=== PATIENT | female | born 2005 | race Caucasian/White ===

== ENCOUNTER 2024-01-03 16:58 | Emergency (ER) | payer OTHER ==
[2024-01-03 17:27] LABS: Bilirubin Negative (Negative); Blood, Urine Negative (Negative); Glucose, Urine (Dipstick) Negative (Negative); Ketone, Urine Negative (Negative); Leukocyte Negative (Negative); Nitrite Negative (Negative); Protein, Urine (Dipstick) Negative (Neg-Trace); Specific Gravity, Urine 1.015 (1.005-1.030); Urobilinogen 0.2 mg/dL (Less than 2); pH, Urine 8.5 (5.0-9.0)
[2024-01-03 17:30] LABS: Clarity Clear (Clear); Pregnancy Test - Urine (BHCG) Negative (Negative); Pregu Control Background? CLEAR/WHITE (CLR/WHITE); Pregu Control Bar Appear? YES (CONTROL BAR); Specific Gravity 1.015 (1.002-1.036)
[2024-01-03 17:32] LABS: Bacteria/HPF 1+ HPF (None Seen); CAUTI Indications for Culture Dysuria,urgency,freq; RBC/HPF None Seen HPF (0-3); WBC/HPF None Seen HPF (0-3)
[2024-01-03 17:33] LABS: Urine Culture Reflex No No
[2024-01-03 18:19] LABS: #Basophils 0.05 10x3/uL (0.0-0.2); %Basophils 0.4 % (0.0-1.0); %Eosinophils 1.4 % (0.0-10.0); %Monocytes 5.6 % (0.0-4.0); %Neutrophils 78.2 % (31.0-61.0); Hematocrit 39.9 % (36.0-47.0); Hemoglobin 13.3 g/dL (12.0-16.0); Mean Corpuscular HGB CONC 33.3 g/dL (32.0-36.0); Mean Corpuscular Hemoglobin 29.4 pg (25.0-35.0); Mean Corpuscular Volume 88.3 fL (78.0-98.0); Mean Platelet Volume 10.1 fL (7.4-10.4); Platelet Count 316 10x3/uL (130-400); RBC Distribution Width 12.2 % (11.5-14.5); Red Blood Cell (RBC) Count 4.52 mill/uL (4.00-5.20)
[2024-01-03 18:36] LABS: ALT (SGPT) 16 U/L (8-55); AST (SGOT) 17 U/L (5-30); Albumin 4.1 g/dL (3.5-5.0); Alkaline Phosphatase 91 U/L (40-100); Anion Gap 9 mmol/L (10-20); BUN (Urea Nitrogen) 11 mg/dL (8.4-21.0); Calc. Creatinine Clearance 0 mL/min (70-130); Calcium 9.2 mg/dL (7.8-10.44); Carbon Dioxide 23 mmol/L (22-29); Chloride 107 mmol/L (98-107); Estimated GFR 110; Globulin 3.4 g/dL (2.4-3.5); Glucose 86 mg/dL (70-105); Lipase 17 U/L (8-78); Potassium 4.4 mmol/L (3.5-5.1); Protein, Total 7.5 g/dL (6.0-8.3); Sodium 135 mmol/L (136-145)
[2024-01-03] MEDS ORDERED: Metoclopramide HCl 10 MG (2 mL) VIAL ONE (20:09)
[2024-01-03] MEDS ORDERED: Amoxicillin/Potassium Clav 875 MG TAB ONE (20:09)
[2024-01-03] MEDS ORDERED: Metoclopramide HCl 10 MG TAB ONE (20:14)
[2024-01-03] MEDS ORDERED: Acetaminophen 500 MG TAB ONE (20:41)
[2024-01-03] MEDS ORDERED: diphenhydrAMINE 50 MG/ML VIAL ONE (21:17)
== END 2024-01-03 22:00 | disposition home or self-care (01) ==
LOC: ERS 16:58
DX: K52.9 Noninfective gastroenteritis and colitis, unspecified (principal); N39.0 Urinary tract infection, site not specified; K59.00 Constipation, unspecified
CPT/HCPCS: 36415; 74177; 80053; 81001; 81025; 83690; 85025; 96372; J1200; J2765